=== PATIENT | male | born 1980 ===

== ENCOUNTER 2020-06-03 06:36 | Day surgery (SDC) | payer OTHER | END 2020-06-03 12:45 | disposition home or self-care (01) | LOC: AMB-ENDOS 06:36 | PROVIDERS: ATTEND Colon & Rectal Surgery | DX: D12.5 Benign neoplasm of sigmoid colon (principal); Z12.11 Encounter for screening for malignant neoplasm of colon; K64.3 Fourth degree hemorrhoids; Z20.822 Contact with and (suspected) exposure to COVID-19 ==

== ENCOUNTER 2020-08-03 08:40 | Day surgery (SDC) | payer OTHER ==
[~2020-08-03 08:40] MED LIST: ZERTEC PO
== END 2020-08-03 21:50 | disposition home or self-care (01) ==
LOC: CIR.AMB 08:40
PROVIDERS: ATTEND Colon & Rectal Surgery
DX: K64.2 Third degree hemorrhoids (principal); Z20.822 Contact with and (suspected) exposure to COVID-19; Z53.09 Procedure and treatment not carried out because of other contraindication; F41.0 Panic disorder [episodic paroxysmal anxiety]; F43.0 Acute stress reaction

== ENCOUNTER 2020-09-21 06:32 | Day surgery (SDC) | payer OTHER | END 2020-09-21 16:40 | disposition home or self-care (01) | LOC: CIR.AMB 06:32 | PROVIDERS: ATTEND Colon & Rectal Surgery | DX: K64.8 Other hemorrhoids (principal); K64.4 Residual hemorrhoidal skin tags; Z20.822 Contact with and (suspected) exposure to COVID-19 ==